=== PATIENT | male | born 1965 | race Caucasian/White ===

== ENCOUNTER → 2020-04-21 09:05 | Outpatient (CLI) | payer OTHER, SELFPAY ==
--- NOTE | 2020-04-21 09:41 | DI.ECHO.S_ITS ---
Echocardiogram Report + + :Name: JEFE JONES Study Date: 04/21/2020 Height: 70 in : :[facility] Weight: 228 lb : : Gender: Male BSA: 2.2 m2 : :: 1965 Age: 54 yrs BP: 120/72 mmHg: :Reason For Study: VENTRICULAR PREMATURE DEPOLARIZATION : :Ordering Physician: RUSSELL, : :ALEN Performed By: Aruna Vinson : :Referring: ALEN WELLS : + + Interpretation Summary The left ventricle is normal in size and wall thickness. Left ventricular systolic function is low normal. Left ventricular ejection fraction is estimated to be 50%. There are no focal wall motion abnormalities. The right ventricle is mildly dilated. The right ventricular systolic function is normal. Both atria are normal in size. There is mild mitral regurgitation. There is mild aortic regurgitation. There is no other significant valvular heart disease. The ascending aorta is mildly enlarged. Procedure: A two-dimensional transthoracic echocardiogram with color flow and Doppler was performed. The study quality was technically adequate. There is no prior echocardiogram noted for this patient. The heart rate ranged between 53-65 bpm during the study. The patient had frequent PACs during the exam. Left Ventricle: The left ventricle is normal in size and wall thickness. Left ventricular systolic function is low normal. Left ventricular ejection fraction is estimated to be 50%. There are no focal wall motion abnormalities. Right Ventricle: The right ventricle is mildly dilated. The right ventricular systolic function is normal. Atria: Both atria are normal in size. There is no Doppler evidence for an interatrial shunt. Mitral Valve: The mitral valve is normal in structure and function. There is mild mitral regurgitation. Aortic Valve: The aortic valve is trileaflet. The aortic valve opens well. There is no aortic valve stenosis. There is mild aortic regurgitation. Tricuspid Valve: The tricuspid valve is normal in structure and function. There is a trace or physiologic amount of tricuspid regurgitation. Pulmonic Valve: The pulmonic valve is not well visualized. There is no pulmonic valvular regurgitation. There is no other significant valvular heart disease. Great Vessels: The aortic root is normal size. The ascending aorta is mildly enlarged. The IVC is of normal diameter and collapses greater than 50% with a sniff. This suggests a low right atrial pressure of 3 mm Hg. Pericardium/ Pleura There is no pericardial effusion. There is no pleural effusion. MMode/2D Measurements & Calculations LVIDd: 5.2 cm LVOT diam: 2.2 cm LVIDs: 3.6 cm Ao root diam: 3.0 cm FS: 30.8 % asc Aorta Diam: 3.7 cm EPSS: 0.41 cm Ao Arch Diam (Prox Trans): 3.1 cm IVSd: 0.95 cm LVPWd: 0.79 cm LV silva. diameter/BSA (cm/m^2): 2.4 LV sys. diameter/BSA (cm/m^2): 1.6 LA A2 area: 23.0 cm2 RA long axis: 5.7 cm LA A4 area: 22.2 cm2 RA area: 16.8 cm2 LA length (vol): 6.6 cm RA vol: 42.2 ml LA vol: 66.1 ml RA : 19.1 ml/m2 LA vol index: 30.0 ml/m2 IVC diam: 1.6 cm RVD1 (basal): 4.2 cm TAPSE: 2.1 cm Doppler Measurements & Calculations Ao V2 max: 158.9 cm/sec LVOT Max Jeremías: 113.2 cm/sec Ao V2 mean: 101.9 cm/sec LV V1 max P.2 mmHg Ao max P.1 mmHg LV V1 VTI: 26.4 cm Ao mean P.8 mmHg COSMO(I,D): 3.2 cm2 Ao V2 VTI: 31.4 cm COSMO(V,D): 2.7 cm2 sev ratio: 0.84 COSMO indexed to BSA (cm^2/m^2): 1.5 AI P1/2t: 1142 msec AI dec slope: 98.7 cm/sec2 Med Peak E' Jeremías: 7.1 cm/sec TR max jeremías: 248.8 cm/sec Lat Peak E' Jeremías: 12.4 cm/sec TR max P.8 mmHg PA V2 max: 69.2 cm/sec PA V2 mean: 50.3 cm/sec PA mean P.1 mmHg PA pr(Accel): 20.8 mmHg SV(LVOT): 101.2 ml Reading Physician:01:03 PM
[2020-04-21 10:21] LABS: Bacteria Urine None Seen; RBC Urine None Seen (0-5/HPF); WBC Urine None Seen (0-5/HPF)
[2020-04-21 10:55] LABS: Alanine Aminotransferase 14 IU/L (<50); Albumin 4.7 g/dL (3.5-5.0); Albumin Globulin Ratio 1.9 (1.0-2.8); Alkaline Phosphatase 52 U/L (38-126); Aspartate Aminotransferase 23 IU/L (17-59); Blood Urea Nitrogen 19 mg/dL (9-20); Calcium 9.7 mg/dL (8.4-10.2); Carbon Dioxide 30 mmol/L (22-32); Chloride 102 mmol/L (98-107); Estimated Glomerular Filt Rate > 60.0 mL/min (>60); Globulin 2.5 g/dL (1.7-4.1); Glucose 99 mg/dL (70-100); HEMOLYSIS < 15 (0-50); Potassium 5.2 mmol/L (3.4-5.1); Sodium 138 mmol/L (137-145); Total Protein 7.2 g/dL (6.3-8.2)
[2020-04-21 11:44] LABS: Appearance Urine UA CLEAR; Bilirubin Urine UA NEGATIVE (NEGATIVE); Color Urine UA YELLOW; Glucose Urine UA NEGATIVE (Negative); Ketones Urine UA NEGATIVE (NEGATIVE); Leukocyte Esterase Urine UA NEGATIVE (NEGATIVE); Nitrite Urine UA NEGATIVE (Negative); Occult Blood Urine UA NEGATIVE (Negative); Protein Urine UA NEGATIVE (Negative); Specific Gravity Urine UA <=1.005 (1.000-1.035); Urobilinogen Urine UA 0.2 E.U./dL (0.2)
[2020-04-21 12:15] LABS: Culture Indicated Urine Cult Not Indicated; Urine Comments Microscopic Normal
== END ==
PROVIDERS: PCP Internal Medicine; Referring Provider Internal Medicine; Visit Provider Internal Medicine
DX: I08.0 Rheumatic disorders of both mitral and aortic valves (principal); I49.3 Ventricular premature depolarization; N18.2 Chronic kidney disease, stage 2 (mild); I77.89 Other specified disorders of arteries and arterioles
CPT/HCPCS: 36415; 80053; 81001; 93306